=== PATIENT | female | born 2000 | race Caucasian/White ===

== ENCOUNTER 2023-03-30 21:38 | Emergency (ER) | payer BC ==
[2023-03-30] MEDS ORDERED: Piperacillin/Tazobactam 3.375 GM VIAL ONE (22:14)
[2023-03-30] MEDS ORDERED: Acetaminophen 500 MG TAB ONE (22:14)
[2023-03-30] MEDS ORDERED: VANCOMYCIN 2 GRAM/500 ML BAG 2 GM in Premix Bag 1 BAG IVPB SCH (22:30)
[2023-03-30 22:38] LABS: #Basophils 0.1 thou/uL (0.0-0.2); #Eosinphils 0.1 thou/uL (0.0-0.7); #Lymphocytes 2.5 thou/uL (1.20-3.40); #Monocytes 0.9 thou/uL (0.11-0.59); #Neutrophils 14.1 thou/uL (1.40-6.50); %Basophils 0.4 % (0.0-1.0); %Eosinophils 0.5 % (0.0-10.0); %Monocytes 5.2 % (0.0-10.0); %Neutrophils 79.9 % (42.0-75.0); Hemoglobin 13.7 g/dL (12.0-16.0); Mean Corpuscular HGB CONC 33.4 g/dL (32.0-36.0); Mean Corpuscular Hemoglobin 27.6 pg (27.0-31.0); Mean Corpuscular Volume 82.7 fl (78.0-98.0); Mean Platelet Volume 8.6 fL (7.4-10.4); Platelet Count 312 10x3/uL (130-400); RBC Distribution Width 12.8 % (11.5-14.5); Red Blood Cell (RBC) Count 4.96 mill/uL (4.20-5.40); White Blood Cell (WBC) Count 17.6 10x3/uL (4.8-10.8)
[2023-03-30 22:47] LABS: BHCG - Serum Negative (NEGATIVE); Pregs Control Background? CLEAR/WHITE (CLR/WHITE); Pregs Control Bar Appear? YES (CONTROL BAR)
[2023-03-30 22:58] LABS: Albumin 4.6 g/dL (3.5-5.0)
[2023-03-30 22:59] LABS: Chloride 107 mmol/L (98-107); Potassium 3.8 mmol/L (3.5-5.1); Sodium 141 mmol/L (136-145)
[2023-03-30 23:00] LABS: Calcium 9.4 mg/dL (7.8-10.44)
[2023-03-30 23:01] LABS: Globulin 3.2 g/dL (2.4-3.5); Glucose 106 mg/dL (70-105); Protein, Total 7.8 g/dL (6.0-8.3)
[2023-03-30 23:02] LABS: Anion Gap 15 mmol/L (10-20); Bilirubin, Total 0.2 mg/dL (0.2-1.2); Carbon Dioxide 23 mmol/L (22-29)
[2023-03-30 23:03] LABS: Alkaline Phosphatase 94 U/L (40-110)
[2023-03-30 23:04] LABS: Calc. Creatinine Clearance 0 mL/min (70-130); Estimated GFR 85
[2023-03-30 23:05] LABS: BUN (Urea Nitrogen) 14 mg/dL (7.0-18.7)
[2023-03-30 23:06] LABS: AST (SGOT) 19 U/L (5-34)
[2023-03-30 23:07] LABS: ALT (SGPT) 13 U/L (8-55)
[2023-03-30 23:49] LABS: Bacteria/HPF None Seen HPF (None Seen); Bilirubin Negative (Negative); Blood, Urine 2+ (Negative); Clarity Clear (Clear); Glucose, Urine (Dipstick) Normal (Negative); Ketone, Urine Negative (Negative); Leukocyte Negative Leu/uL (Negative); Nitrite Negative (Negative); Protein, Urine (Dipstick) Negative (Neg-Trace); RBC/HPF 0-3 HPF (0-3); Specific Gravity, Urine 1.025 (1.002-1.036); Squamous Epithelial 0-3 HPF (0-3); Urobilinogen Normal mg/dL (Less than 2); WBC/HPF 0-3 HPF (0-3)
[2023-03-30] MEDS ORDERED: Lidocaine 1% w/Epinephrine 1:100K 20 ML VIAL ONE (23:53)
[2023-03-31] MEDS ORDERED: diphenhydrAMINE 50 MG/ML VIAL ONE (02:34)
== END 2023-03-31 03:16 | disposition home or self-care (01) ==
LOC: ERS 21:38
DX: L03.116 Cellulitis of left lower limb (principal); L02.416 Cutaneous abscess of left lower limb; D72.829 Elevated white blood cell count, unspecified
CPT/HCPCS: 36415; 80053; 81003; 81015; 83605; 84703; 85025; 87040; 87086; 96365; 96366; 96367; 96375; J1200; J2543; J3370